=== PATIENT | female | born 1980 | race Caucasian/White ===

== ENCOUNTER 2017-09-24 18:03 | Emergency (ER) | payer BC ==
--- NOTE | 2017-09-24 18:09 | UC ---
Respiratory Complaint HPI - HPI Summary HPI Summary: 36 yo female presents with feeling tightness in her chest and SOB, especially at bedtime or with exertion, for the past 3 days. She says she feels like she has pneumonia, but doesn't have a cough or wheezing. She does have a hx of breast cancer. Feels fatigued and more tired than usual. Denies chills, cough, sinus symptoms, chest pain, abdominal pain, n/v/d/c. No recent travel. - History of Current Complaint Stated Complaint: CHEST CONGESTION Time Seen by Provider: 09/24/17 18:09 Hx Obtained From: Patient Onset/Duration: Sudden Onset Timing: Constant Severity Currently: None - Allergies/Home Medications Allergies/Adverse Reactions: Allergies Allergy/AdvReac Type Severity Reaction Status Date / Time No Known Allergies Allergy Verified 09/24/17 18:29 Home Medications: Home Medications Atenolol 25 mg PO DAILY 09/24/17 [History Confirmed 09/24/17] Bupropion XL* [Wellbutrin XL *] 300 mg PO DAILY 09/24/17 [History Confirmed ] Famotidine [Acid Controller] 20 mg PO DAILY 09/24/17 [History Confirmed 09/24/17 ] Tamoxifen TAB* [Nolvadex*] 20 mg PO DAILY 09/24/17 [History Confirmed 09/24/17] PMH/Surg Hx/FS Hx/Imm Hx GI/ History: Gastroesophageal Reflux Psychological History: Depression Cancer History: Breast Cancer Other History Of: Negative For: Anticoagulant Therapy - Surgical History Surgical History: Yes Surgery Procedure, Year, and Place: wisdom teeth 13 years ago URETERAL STENT X 5 [facility] - 09/29/12 TUBAL LIGATION 11/2012 mastectomy 09/17/13 Lasik eye surgery 2001 [facility],BILATERAL BREAST RECONSTRUCTION - Family History Known Family History: Positive: Other - Cancer Family History: Cancer - Social History Lives: With Family Alcohol Use: None Substance Use Type: None Smoking Status (MU): Former Smoker Type: Cigarettes Amount Used/How Often: 1/2 PACK PER WEEK Length of Time of Smoking/Using Tobacco: 5 YRS Have You Smoked in the Last Year: No When Did the Patient Quit Smoking/Using Tobacco: 2001 - Immunization History Most Recent Influenza Vaccination: 12/2012 Most Recent Tetanus Shot: 7 years ago Most Recent Pneumonia Vaccination: NONE Review of Systems Constitutional: Negative Skin: Negative Eyes: Negative ENT: Negative Respiratory: Shortness Of Breath Gastrointestinal: Negative Genitourinary: Negative Neurological: Negative Psychological: Negative All Other Systems Reviewed And Are Negative: Yes Physical Exam - Summary Physical Exam Summary: GENERAL: NAD. WDWN. No pain distress. SKIN: No rashes, sores, lesions, or open wounds. HEENT: Head: AT/NC Eyes: Conjunctiva clear without inflammation or discharge. Ears: Hearing grossly normal. TMs intact, no bulging, erythema, or edema. Nose: Nasal mucosa pink and moist. NTTP maxillary and frontal sinus. Throat: Posterior oropharynx without exudates, erythema, or tonsillar enlargement. Uvula midline. NECK: Supple. Nontender. No lymphadenopathy. CHEST: CTAB. No r/r/w. No accessory muscle use. Breathing comfortably and in no distress. CV: Tachycardia. Without m/r/g. Pulses intact. Brisk cap refill. NEURO: Alert. CN II-XII grossly intact. PSYCH: Age appropriate behavior. Triage Information Reviewed: Yes Vital Signs: Vital Signs: Temp Pulse Resp BP Pulse Ox 100.4 F 108 18 107/82 98 09/24/17 18:15 09/24/17 18:15 09/24/17 18:15 09/24/17 18:15 09/24/17 18:15 Vital Signs Reviewed: Yes Respiratory Course/Dx - Course Course Of Treatment: CXR: IMPRESSION: NO EVIDENCE FOR ACTIVE CARDIOPULMONARY DISEASE. EKG: Sinus tach at 109bpm. No ST changes or significant Q waves as read by Dr. Fierro. She is currently on Tamoxifen and has a hx of breast cancer. I am concerned she may have a PE - therefore I have advised her to seek further evaluation in the ED. She was agreeable to this. Declined ambulance transfer. - Differential Dx/Diagnosis Provider Diagnoses: SOB. Dyspnea Discharge - Sign-Out/Discharge Documenting (check all that apply): Patient Departure - Discharge Plan Condition: Stable Disposition: HOME-RECOMMEND TO ED Referrals: Bernice Ceballos MD [Primary Care Provider] - Additional Instructions: Please go to the ER for further evaluation of your SOB - Billing Disposition and Condition Condition: STABLE Disposition: Home-Recommend to ED
[2017-09-24 18:23] VITALS: BP 107/82
--- NOTE | 2017-09-24 18:57 | RAD ---
INDICATION: Shortness of breath. COMPARISON: Comparison is made with a prior study from September 17, 2013. TECHNIQUE: Dual-energy PA and lateral views of the chest were obtained. FINDINGS: The heart is within normal limits in size. Mediastinal and hilar contours appear within normal limits. The lungs are clear. No pleural effusion is present. Several surgical clips project over the right axillary region. IMPRESSION: NO EVIDENCE FOR ACTIVE CARDIOPULMONARY DISEASE.
== END 2017-09-24 18:57 | disposition home health service (06) ==
LOC: UCEAST 18:03
DX: R06.02 Shortness of breath (principal); R06.00 Dyspnea, unspecified; R07.89 Other chest pain; K21.9 Gastro-esophageal reflux disease without esophagitis; F32.9 Major depressive disorder, single episode, unspecified; Z79.899 Other long term (current) drug therapy; Z87.891 Personal history of nicotine dependence; Z85.3 Personal history of malignant neoplasm of breast; R53.83 Other fatigue
CPT/HCPCS: 71046; 93005; 99212; G0463

== ENCOUNTER 2017-09-24 19:13 | Emergency (ER) | payer BC ==
[2017-09-24] MEDS ORDERED: NS 0.9% 1000 ML* 1,000 ML IV ONE (19:59)
[2017-09-24] MEDS ORDERED: Aspirin 81 mg CHEW TAB* 81 MG TAB.CHEW PO ONE (20:00)
--- NOTE | 2017-09-24 20:22 | ED ---
Shortness of Breath - HPI Summary HPI Summary: This is Sai Lozano documenting for Julián Lam MD This patient is a 36 year old F presenting to [facility] accompanied by with a chief complaint of SOB on exertion since 3 days ago. She reports that when she lies down at night she experiences chest heaviness and SOB. The symptoms worsened today, and she reports she "couldn't catch my breath". She also currently reports pain in her left upper back when taking a deep breath. She is still on Tamoxifen for her breast cancer. - History of Current Complaint Chief Complaint: EDChestPainROMI Time Seen by Provider: 09/24/17 19:44 Hx Obtained From: Patient Onset/Duration: Sudden Onset, Lasting Days - since 3 days ago, Still Present, Worse Since - today Timing: Constant Dyspnea At: Exertion Aggrevating Factors: Movement, Deep Breaths Alleviating Factors: Nothing Associated Signs & Symptoms: Chest Pain Unrelated to Cough - "chest heaviness" - Allergy/Home Medications Allergies/Adverse Reactions: Allergies Allergy/AdvReac Type Severity Reaction Status Date / Time No Known Allergies Allergy Verified 09/24/17 18:29 Home Medications: Home Medications Atenolol TAB* [Tenormin TAB* 25 MG] 25 mg PO DAILY 09/24/17 [History Confirmed 09/24/17] Calcium Carb/Vit D3/Minerals [Calcium 600+D Plus [place]] 1 tab PO DAILY [History Confirmed 09/24/17] DULoxetine DR CAP* [Cymbalta CAP*] 30 mg PO DAILY 09/24/17 [History Confirmed ] Famotidine TAB* [Pepcid 20 MG TAB*] 20 mg PO DAILY 09/24/17 [History Confirmed 09/24/17] Multivitamins/Minerals TAB* [Theragran/minerals TAB*] 1 tab PO DAILY 09/24/17 [ History Confirmed 09/24/17] PMH/Surg Hx/FS Hx/Imm Hx Endocrine/Hematology History: Reports: Hx Anemia - HELLP SYNDROM DURING LATER OF Denies: Hx Anticoagulant Therapy, Hx Diabetes, Hx Systemic Lupus Erythematosus, Hx Thyroid Disease Cardiovascular History: Reports: Hx Hypertension - ON MEDS Denies: Hx Congestive Heart Failure, Hx Pacemaker/ICD, Other Cardiovascular Problems/Disorders Respiratory History: Denies: Hx Asthma, Other Respiratory Problems/Disorders GI History: Denies: Other GI Disorders History: Reports: Hx Kidney Stones - HX OF AND CURRENTLY Denies: Hx Dialysis, Hx Kidney Infection, Hx Renal Disease, Other Problems /Disorders Musculoskeletal History: Denies: Hx Rheumatoid Arthritis, Hx Osteoporosis, Other Musculoskeletal History Sensory History: Reports: Hx Deafness - Right ear 5% hearing ability Denies: Hx Cataracts, Hx Contacts or Glasses, Hx Glaucoma, Hx Hearing Aid Opthamlomology History: Denies: Hx Cataracts, Hx Contacts or Glasses, Hx Glaucoma Neurological History: Reports: Hx Migraine - 3 X PER YEAR- HX OF IBUPROFEN AND REST Psychiatric History: Reports: Hx Anxiety, Hx Depression - ON MEDICATION FOR Denies: Hx Attention Deficit Hyperactivity Disorder, Hx Panic Disorder, Hx Community Mental Health Tx, Hx Bipolar Disorder, Other Psychiatric Issues/ Disorders - Cancer History Cancer Type, Location and Year: breast CA 08/2013 Hx Chemotherapy: Yes Hx Radiation Therapy: No - Surgical History Surgery Procedure, Year, and Place: wisdom teeth 13 years ago URETERAL STENT X 5 [facility] - 09/29/12 TUBAL LIGATION 11/2012 mastectomy 09/17/13 Lasik eye surgery 2002 [facility],BILATERAL BREAST RECONSTRUCTION Hx Anesthesia Reactions: No - Immunization History Date of Tetanus Vaccine: <10yrs Date of Influenza Vaccine: Fall 2011 Infectious Disease History: No Infectious Disease History: Denies: Hx Clostridium Difficile, Hx Hepatitis, Hx Human Immunodeficiency Virus (HIV), Hx of Known/Suspected MRSA, Hx Shingles, Hx Tuberculosis, Hx Known/ Suspected VRE, Hx Known/Suspected VRSA, History Other Infectious Disease, Traveled Outside the [place] in Last 30 Days - Family History Known Family History: Positive: Other Family History: No breast cancer - Social History Alcohol Use: None Substance Use Type: Reports: None Smoking Status (MU): Former Smoker Type: Cigarettes Amount Used/How Often: 1/2 PACK PER WEEK Length of Time of Smoking/Using Tobacco: 5 YRS Have You Smoked in the Last Year: No Review of Systems Positive: Chest Pain - "chest heaviness" Positive: Shortness Of Breath Positive: Other - L upper back pain when taking deep breaths All Other Systems Reviewed And Are Negative: Yes Physical Exam - Summary Physical Exam Summary: VITAL SIGNS: Reviewed. GENERAL: Patient is a well-developed and nourished FEMALE who is lying comfortable in the stretcher. Patient is not in any acute respiratory distress. HEAD AND FACE: No signs of trauma. No ecchymosis, hematomas or skull depressions. No sinus tenderness. EYES: PERRLA, EOMI x 2, No injected conjunctiva, no nystagmus. EARS: Hearing grossly intact. Ear canals and tympanic membranes are within normal limits. MOUTH: Oropharynx within normal limits. NECK: Supple, trachea is midline, no adenopathy, no JVD, no carotid bruit, no c- spine tenderness, neck with full ROM. CHEST: Symmetric, no tenderness at palpation LUNGS: Clear to auscultation bilaterally. No wheezing or crackles. CVS: Tachycardic. Regular rhythm, S1 and S2 present, no murmurs or gallops appreciated. ABDOMEN: Soft, non-tender. No signs of distention. No rebound no guarding, and no masses palpated. Bowel sounds are normal. EXTREMITIES: FROM in all major joints, no edema, no cyanosis or clubbing. NEURO: Alert and oriented x 3. No acute neurological deficits. Speech is normal and follows commands. SKIN: Dry and warm Triage Information Reviewed: Yes Vital Signs On Initial Exam: Initial Vitals Temp Pulse Resp BP Pulse Ox 98.2 F 101 20 130/98 98 09/24/17 19:17 09/24/17 19:17 09/24/17 19:17 09/24/17 19:17 09/24/17 19:17 Vital Signs Reviewed: Yes Diagnostics - Vital Signs Vital Signs Temp Pulse Resp BP Pulse Ox 09/24/17 19:17 98.2 F 101 20 130/98 98 - Laboratory Result Diagrams: 09/24/17 20:19 09/24/17 20:19 Lab Statement: Any lab studies that have been ordered have been reviewed, and results considered in the medical decision making process. - CT CT Angiography Chest with Intravenous Contrast CT Interpretation Completed By: Radiologist - No pulmonary emboli. No additional findings to correlate with patient's symptomatology. ED Physician has reviewed this report. - EKG No standard instances Cardiac Rate: Tachycardia - 100 bpm EKG Interpretation: Normal axis. Non-specific T wave changes Re-Evaluation - Re-Evaluation 22:35 Re-Evaluation Time: 22:35 Comment: Discussed the results with the patient. Symptoms are most likely secondary to anxiety. Course/Dx - Course Assessment/Plan: This patient came into the ED c/o difficulty breathing for the past 3 days. She has a hx of breast CA and bilateral mastectomy. Her workup showed normal D-dimer and CT chest was also normal. Therefore, her sx may be secondary to anxiety. She has a hx of anxiety and will be D/C with dx of anxiety. - Diagnoses Differential Diagnosis/HQI/PQRI: Positive: Other - anxiety Provider Diagnoses: Anxiety Discharge - Sign-Out/Discharge Documenting (check all that apply): Patient Departure - Discharge Plan Condition: Stable Disposition: HOME Prescriptions: ALPRAZolam TAB* [Xanax TAB*] 0.5 mg PO BID PRN #10 tab MDD 2 PRN Reason: Anxiety Patient Education Materials: Anxiety (ED) Referrals: Bernice Ceballos MD [Primary Care Provider] - (Follow up with your primary care physician in 1-3 days.) Additional Instructions: RETURN TO THE EMERGENCY DEPARTMENT FOR CHANGING OR WORSENING SYMPTOMS.
[2017-09-24 20:28] LABS: ABS Basophils 0 10^3/ul (0-0.2); ABS Eosinophils 0.2 10^3/ul (0-0.6); ABS Monocytes 0.4 10^3/ul (0-0.8); ABS Neutrophils 4.4 10^3/ul (1.5-7.7); ABS Nucleated RBC 0 10^3/ul; Eosinophil % 2.4 % (0-6); Hematocrit 36 % (35-47); Hemoglobin 12.8 g/dl (12.0-16.0); Lymphocyte % 28.5 % (25-47); Mean Corpuscular HGB Conc 35 g/dl (31-36); Mean Corpuscular Hemoglobin 32 pg (27-31); Mean Corpuscular Volume 91 fL (80-97); Mean Platelet Volume 6.6 um3 (7.4-10.4); Nucleated Red Blood Cells % 0; Platelet Count 210 10^3/ul (150-450); Red Blood Count 3.99 10^6/ul (4.00-5.40); Red Cell Distribution Width 14 % (10.5-15)
[2017-09-24 20:41] LABS: INR 0.87 (0.77-1.02)
[2017-09-24 20:47] LABS: EGFR Non-African American 67.5 (>60)
[2017-09-24] MEDS ORDERED: Iohexol 350* (CONTRAST) 500 ML MDV IV ONE (21:08)
[2017-09-24] MEDS ORDERED: ALPRAZolam TAB* 0.5 MG PO ONE (22:41)
[2017-09-24 23:57] VITALS: BP 127/92
--- NOTE | 2017-09-25 08:13 | RAD ---
INDICATION: Chest pain. Short of breath. Evaluate for pulmonary embolus. COMPARISON: Chest x-ray September 24, 2017; CTA chest August 17, 2014 TECHNIQUE: Axial source images were obtained from the thoracic inlet to the hemidiaphragms following administration of [address] angiographic technique was utilized. Coronal and sagittal reconstructed images were acquired. CHEST FINDINGS: Neck/thyroid: The visualized neck to include the thyroid appear normal. Chest wall: There are no acute abnormalities of the bony thorax or chest wall. There are mastectomies with TRAM flap reconstruction There is no supraclavicular, infraclavicular, or axillary lymphadenopathy. Lungs : There are no pulmonary parenchymal masses or infiltrates. The pulmonary interstitium appears normal. There are no endobronchial lesions. Cardiomediastinal structures: There is no CT evidence of acute pulmonary embolic disease. The heart is normal in size. There is no pericardial effusion. There is no evidence of aortic aneurysm or dissection. There is no mediastinal or hilar adenopathy. The esophagus appears normal. Pleura : There are no pleural-based masses or effusions. Other: None. IMPRESSION: NO CT EVIDENCE OF ACUTE PULMONARY EMBOLIC DISEASE. LUNGS CLEAR.
== END 2017-09-24 23:56 | disposition home or self-care (01) ==
LOC: ED 19:13
DX: F41.9 Anxiety disorder, unspecified (principal); R07.89 Other chest pain; R05 Cough; R06.02 Shortness of breath; M54.6 Pain in thoracic spine; R00.0 Tachycardia, unspecified; I10 Essential (primary) hypertension; F32.9 Major depressive disorder, single episode, unspecified; Z85.3 Personal history of malignant neoplasm of breast; Z87.891 Personal history of nicotine dependence
CPT/HCPCS: 36415; 71275; 80053; 82550; 83880; 84484; 84702; 85025; 85379; 85610; 85730; 93005; 96360; 96361; 99283; A9270-GY; Q9967

== ENCOUNTER 2020-02-14 11:28 | Inpatient (IN) ==
[2020-02-14] MEDS ORDERED: Metoclopramide 5 MG/ML VIAL (10 mg) IV SLOW PU ONE (12:02)
[2020-02-14] MEDS ORDERED: NS 0.9% 1000 ml BAG 1,000 ML IV ONE ×2 (12:02→14:26)
[2020-02-14 13:31] LABS: Urine Appearance Cloudy; Urine Bilirubin Negative (Negative); Urine Blood 2+ (Negative); Urine Color Amber; Urine Glucose Negative (Negative); Urine Ketones Negative (Negative); Urine Nitrite Positive (Negative); Urine Protein 1+(30 mg/dL) (Negative); Urine Specific Gravity 1.029 (1.010-1.030); Urine Urobilinogen Positive (Negative)
[2020-02-14 13:37] LABS: Urine Bacteria 2+ (Absent); Urine Red Blood Cell 3+(>10/hpf) (Absent); Urine Squamous Epithelial Cell Present (Absent); Urine White Blood Cell 3+(>20/hpf) (Absent)
[2020-02-14 13:39] LABS: ABS Eosinophils 0.3 10^3/ul (0-0.6); ABS Lymphocytes 1.3 10^3/ul (1.0-4.8); ABS Monocytes 0.5 10^3/ul (0-0.8); ABS Neutrophils 7.1 10^3/ul (1.5-7.7); Eosinophil % 3.4 %; Hematocrit 38 % (35-47); Lymphocyte % 14.4 %; Mean Corpuscular HGB Conc 34 g/dL (31-36); Mean Corpuscular Hemoglobin 32 pg (27-31); Mean Corpuscular Volume 92 fL (80-97); Platelet Count 246 10^3/uL (150-450); Red Blood Count 4.12 10^6 /uL (3.70-4.87); Red Cell Distribution Width 14 % (10-15); White Blood Count 9.3 10^3/uL (3.5-10.8)
[2020-02-14 14:00] LABS: ALT 20 U/L (7-52); AST 17 U/L (13-39); Albumin 3.8 g/dL (3.2-5.2); Albumin/Globulin Ratio 1.4 (1-3); Alkaline Phosphatase 101 U/L (34-104); Anion Gap 5 mmol/L (2-11); BUN/Creatinine Ratio 9.1 (8-20); Blood Urea Nitrogen 11 mg/dL (6-24); C Reactive Protein 10.48 mg/L (<8.01); CO2 Carbon Dioxide 25 mmol/L (22-32); Calcium 8.8 mg/dL (8.6-10.3); Chloride 106 mmol/L (101-111); EGFR African American 59.3 (>60); Globulin 2.7 g/dL (2-4); Glucose 97 mg/dL (70-100); Potassium 4.1 mmol/L (3.5-5.0); Sodium 136 mmol/L (135-145); Total Protein 6.5 g/dL (6.4-8.9)
[2020-02-14 14:07] LABS: HCG Pregnancy < 0.60 mIU/mL
[2020-02-14] MEDS ORDERED: Gentamicin ADULT 40 MG/ML VIAL (2 ML VIAL = 80 MG) IVPB ONE (14:27)
[2020-02-14] MEDS ORDERED: oxyCODONE/Acetamin 5/325 mg TAB PO ONE (14:35)
[2020-02-14] MEDS: cefTRIAXone 2 GM ADDV.VIAL 2 GM in NS 0.9% 100 ml BAG 100 ML IVPB ONE ×2 (14:40→14:42)
[2020-02-14] MEDS ORDERED: NS 0.9% 100 ml BAG 100 ML ONE (14:41)
[2020-02-14] MEDS ORDERED: Gentamicin ADULT 160 MG in NS 0.9% 100 ml BAG 100 ML IVPB ONE (15:00)
[2020-02-14] MEDS ORDERED: Ondansetron 4 mg VIAL 2 MG/ML 2 ml VIAL IV PRN ×2 (15:41→17:07)
[2020-02-14] MEDS ORDERED: Iohexol 180 (CONTRAST) 10 ML SDV IV ONE (17:05)
[2020-02-14] MEDS ORDERED: HYDROmorphone 1 MG/1 ML SYRINGE IV PRN (17:07)
[2020-02-14] MEDS ORDERED: Naloxone 0.4 mg VIAL 0.4 mg/ml 1 ml VIAL IV PRN (17:07)
[2020-02-14] MEDS ORDERED: fentaNYL 100 mcg/2 ml 50 MCG/ML VIAL IV PRN (17:07)
[2020-02-14] MEDS ORDERED: Midazolam 2 mg/2 ml VIAL 1 mg/ml 2 ml VIAL (2 mg) ONE (17:08)
[2020-02-14] MEDS ORDERED: fentaNYL 250 mcg/5 ml 50 MCG/ML 5 ml VIAL (250 MCG) ONE (17:08)
[2020-02-14] MEDS ORDERED: Rocuronium 50 mg VIAL 10 mg/ml 5 ml VIAL (50 mg) ONE (17:08)
[2020-02-14] MEDS ORDERED: HYDROmorphone 1 MG/1 ML SYRINGE ONE (18:52)
[2020-02-14] MEDS: NS 0.9% 1000 ml BAG 1,000 ML IV SCH (20:52)
[2020-02-15] MEDS: NS 0.9% 1000 ml BAG 1,000 ML IV SCH (03:56)
[2020-02-15 06:38] LABS: BUN/Creatinine Ratio 10.5 (8-20); Calcium 7.5 mg/dL (8.6-10.3); EGFR African American 101.5 (>60); EGFR Non-African American 83.9 (>60)
[2020-02-15 07:26] VITALS: BP 108/66
[2020-02-15] MEDS ORDERED: oxyCODONE/Acetamin 5/325 mg TAB PO PRN (07:47)
[2020-02-15] MEDS ORDERED: DULoxetine DR 60 mg CAP PO SCH (09:00)
[2020-02-15] MEDS ORDERED: cefTRIAXone 2 GM ADDV.VIAL 2 GM in NS 0.9% 100 ml BAG 100 ML IV SCH (14:00)
== END 2020-02-15 13:30 | disposition home or self-care (01) | DRG 720 ==
LOC: ED 11:28 → SSU 15:26
PROVIDERS: ADMIT Student in an Organized Health Care Education/Training Program; ATTEND Student in an Organized Health Care Education/Training Program